=== PATIENT | female | born 1940 | race Caucasian/White ===

== ENCOUNTER 2017-10-13 10:49 | Day surgery (SDC) | payer OTHER ==
[2017-10-13] MEDS ORDERED: CYCLOPENTOLATE 1% OPTH 2 ML ONE (11:15)
[2017-10-13] MEDS ORDERED: NA CHLORIDE 0.9% 500 ML ONE (11:15)
[2017-10-13] MEDS: PHENYLEPHRINE 10% OPTH 5ML ONE ×3 (11:20→11:32)
[2017-10-13] MEDS ORDERED: BALANCED SALT IRRIG PLAIN 500 ML BTL IRR ONE (11:24)
[2017-10-13] MEDS ORDERED: NS 0.9% VIAL 10 ML ONE (11:24)
[2017-10-13] MEDS ORDERED: EPINEPHRINE/PF 1 MG/ML AMP ONE (11:24)
[2017-10-13] MEDS ORDERED: DUOVISC 1 KIT OPTH ONE (11:25)
[2017-10-13] MEDS ORDERED: MOXIFLOXACIN HCL 10 DROPS/ML **OR USE OPTH ONE (11:25)
[2017-10-13] MEDS ORDERED: CYCLOPENTOLATE 1% OPTH 2 ML OPTH ONE ×2 (11:32→11:42)
[2017-10-13] MEDS ORDERED: PHENYLEPHRINE 10% OPTH 5ML OPTH ONE (11:42)
[2017-10-13] MEDS: TETRACAINE HCL 0.5% 2ML OPTH ONE ×2 (11:42→12:34)
[2017-10-13] MEDS: BUPIVACAINE 0.25% PF 10 ML VIAL ONE ×2 (11:43→12:35)
[2017-10-13] MEDS: LIDOCAINE 2% MPF 5 ML VIAL ONE ×2 (11:43→12:35)
[2017-10-13] MEDS ORDERED: LIDOCAINE 2% MPF 5 ML VIAL ONE (11:55)
[2017-10-13] MEDS ORDERED: PROPOFOL 200 MG/20 ML VIAL IV ONE (11:55)
--- NOTE | 2017-10-13 13:29 | P.BOP ---
Preoperative diagnosis: Nuclear sclerotic cataract and regular astigmatism OD Postoperative diagnosis: Same Primary procedure: Phacoemulsification with Toric IOL OD Estimated blood loss: None Anesthesia: Local (Subtenon's infusion with anesthesia for cataract surgery) Complications: None Implants: [id number] +21.5 @ 116 Transferred to: Other (Day surgery) Condition: Good
--- NOTE | 2017-10-13 18:32 | OP ---
Date of Procedure: 10/13/2017 Surgeon: Tamica Rasheed MD Anesthesiologist: 1. Kerry Lainez CRNA. 2. Ricki Rene M.D. Preoperative Diagnoses: Nuclear sclerotic cataract and regular astigmatism, right eye. Operation Performed: Phacoemulsification with Toric intraocular lens implant, right eye. Anesthesia: Per cataract surgery Complications: None. Description Of Procedure: In day surgery, the patient was prepped with Betadine and draped. A conju nctival incision was made in the inferior nasal quadrant with Lisa scissors. A sub-Tenon block c onsisting of a 1:1 mixture of 2% Xylocaine and 0.25% bupivacaine was placed through the conjunctival incision with a blunt cannula. A Honan balloon was placed over the eye and the patient was transferr ed to the operating room. In the operating room the patient was prepped and draped in the usual sterile fashion for ophthalmic surgery. A lid speculum was placed in the right eye. Two paracentesis sites were made superiorly an d inferiorly in the limbal cornea. Viscoat was placed in the anterior chamber and a crescent blade w as used to make a corneal groove and tunnel, and a keratome was used to enter the anterior chamber. Provisc was placed in the anterior chamber and a 360 degree capsulotomy was performed with a cystitom e. The lens was hydrodissected with BSS and rotated freely. The lens was removed with a stop and ch op technique. 6.53 phaco CDE was used to remove the lens. Residual cortex was removed with the irri gation and aspiration. Provisc was placed in the capsular bag. A [id number] +21.5 at 116 degrees lens w as placed in the capsular bag without complications. Irrigation and aspiration was used to remove re sidual viscoelastic. The paracentesis sites were hydrated with BSS. The wound and paracentesis site s were inspected and found to be watertight. Vigamox 0.07 cc was placed intracamerally at the end of the procedure. The eye was irrigated with balanced salt solution. The eye was patched with a soft cotton patch and Robledo metal shield. The patient was returned to day surgery in good condition. Discharge Instructions: Ms. Jones is discharged to home in good condition and is to follow up with Jim Rasheed in the morning. WES/MODL Voice ID: [id number] Report ID: [id number]
== END 2017-10-13 14:04 | disposition home or self-care (01) ==
LOC: OR 10:49
PROVIDERS: ATTEND Ophthalmology Retina Specialist
PROC: 08RJ3JZ Replacement of Right Lens with Synthetic Substitute, Percutaneous Approach (ICD-10-PCS; principal; 2017-10-13 11:00)
DX: H25.11 Age-related nuclear cataract, right eye (principal); H52.221 Regular astigmatism, right eye; H04.123 Dry eye syndrome of bilateral lacrimal glands; E03.9 Hypothyroidism, unspecified; M19.90 Unspecified osteoarthritis, unspecified site; Z88.3 Allergy status to other anti-infective agents; Z79.82 Long term (current) use of aspirin
CPT/HCPCS: 66984; J0171; V2787

== ENCOUNTER 2017-12-01 07:16 | Day surgery (SDC) | payer OTHER ==
[2017-12-01] MEDS ORDERED: BUPIVACAINE 0.25% PF 10 ML VIAL ONE (07:42)
[2017-12-01] MEDS ORDERED: CYCLOPENTOLATE 1% OPTH 2 ML ONE (07:42)
[2017-12-01] MEDS ORDERED: TETRACAINE HCL 0.5% 2ML OPTH ONE (07:42)
[2017-12-01] MEDS ORDERED: LIDOCAINE HCL/PF 3.5% OPTH GEL ONE (07:43)
[2017-12-01] MEDS: NA CHLORIDE 0.9% 500 ML ONE ×2 (07:50→08:00)
[2017-12-01] MEDS ORDERED: EPINEPHRINE/PF 1 MG/ML AMP ONE ×2 (08:06→08:08)
[2017-12-01] MEDS ORDERED: NS 0.9% VIAL 0 ML ONE (08:06)
[2017-12-01] MEDS ORDERED: DUOVISC 1 KIT OPTH ONE ×2 (08:07→08:09)
[2017-12-01] MEDS ORDERED: NS 0.9% VIAL 10 ML ONE (08:07)
[2017-12-01] MEDS ORDERED: BALANCED SALT IRRIG PLAIN 500 ML BTL IRR ONE ×2 (08:07→08:08)
[2017-12-01] MEDS ORDERED: MOXIFLOXACIN HCL 10 DROPS/ML **OR USE OPTH ONE (08:08)
[2017-12-01] MEDS ORDERED: LIDOCAINE 1% MPF 2 ML AMPULE ONE (08:08)
[2017-12-01] MEDS ORDERED: PHENYLEPHRINE 10% OPTH 5ML OPTH ONE ×2 (08:10→08:15)
[2017-12-01] MEDS ORDERED: CYCLOPENTOLATE 1% OPTH 2 ML OPTH ONE ×2 (08:10→08:15)
[2017-12-01] MEDS ORDERED: PHENYLEPHRINE 10% OPTH 5ML ONE (08:11)
[2017-12-01] MEDS ORDERED: MIDAZOLAM HCL 2 MG/2 ML INJ ONE (08:59)
[2017-12-01] MEDS ORDERED: FENTANYL CITR 100 MCG/2 ML ONE (08:59)
--- NOTE | 2017-12-01 09:43 | P.BOP ---
Preoperative diagnosis: Nuclear sclerotic cataract and regular astigmatism OS Postoperative diagnosis: Same Primary procedure: Phacoemulsification with Toric IOL OS Estimated blood loss: None Anesthesia: Local (Topical with anesthesia for cataract surgery) Complications: None Implants: [id number] +21.0 @ 63 degrees Transferred to: Other (Day surgery) Condition: Good
--- NOTE | 2017-12-01 21:07 | OP ---
Date of Procedure: 12/01/2017 Surgeon: Tamica Rasheed MD Anesthesiologist: 1. Kerry Encinas C.R.N.A. 2. Godfrey Bolaños M.D. Preoperative Diagnoses: Nuclear sclerotic cataract, left eye; and regular astigmatism, left eye. Operation Performed: Phacoemulsification with Toric intraocular lens implant, left eye. Anesthesia: Per cataract surgery. Complications: None. Description Of Procedure: In the operating room the patient was prepped and draped in the usual ster ile fashion for ophthalmic surgery. A lid speculum was placed in the left eye. Two paracentesis sit es were made superiorly and inferiorly in the limbal cornea. Viscoat was placed in the anterior tory amy and a crescent blade was used to make a corneal groove and tunnel, and a keratome was used to ent er the anterior chamber. Provisc was placed in the anterior chamber and a 360 degree capsulotomy was performed with a cystitome. The lens was hydrodissected with BSS and rotated freely. The lens was removed with a stop and chop technique. 8.20 phaco CDE was used to remove the lens. Residual cortex was removed with the irrigation and aspiration. Provisc was placed in the capsular bag. A [id number] + 21.0 at 63 degrees lens was placed in the capsular bag without complications. Irrigation and aspirat ion was used to remove residual viscoelastic. The paracentesis sites were hydrated with BSS. The wo und and paracentesis sites were inspected and found to be watertight. Vigamox 0.07 cc was placed int racamerally at the end of the procedure. The eye was irrigated with balanced salt solution. The eye was patched with a soft cotton patch and Robledo metal shield. The patient was returned to day surgery in good condition. Comments: Akten was placed in the eye in day surgery and irrigated out of the eye with BSS in the OR . Preservative-free 1% lidocaine was placed in the anterior chamber prior to Viscoat. Discharge Instructions: Ms. Jones is discharged to home in good condition and is to follow up with Jim Rasheed in the morning. WES/LO Voice ID: [id number] Report ID: [id number]
== END 2017-12-01 10:13 | disposition home or self-care (01) ==
LOC: OR 07:16
PROVIDERS: ATTEND Ophthalmology Retina Specialist
PROC: 08RK3JZ Replacement of Left Lens with Synthetic Substitute, Percutaneous Approach (ICD-10-PCS; principal; 2017-12-01 09:00)
DX: H25.12 Age-related nuclear cataract, left eye (principal); H52.222 Regular astigmatism, left eye; H04.123 Dry eye syndrome of bilateral lacrimal glands; E07.9 Disorder of thyroid, unspecified; M19.90 Unspecified osteoarthritis, unspecified site; Z88.3 Allergy status to other anti-infective agents
CPT/HCPCS: 66984; J0171; J2001; J2250; J3010; V2787